=== PATIENT | female | born 1970 | race Caucasian/White ===

== ENCOUNTER 2017-02-10 06:00 | Day surgery (SDC) | payer BC, SELFPAY ==
[2017-02-08 17:43] LABS: BASOPHILS 0.5 %; BASOPHILS ABSOLUTE 0.04 10/3/uL (0.0-0.16); EOSINOPHILS 1.7 %; EOSINOPHILS ABSOLUTE 0.13 10/3/uL (0.0-0.53); HEMATOCRIT 38.5 % (36.0-48.0); HEMOGLOBIN 12.8 g/dL (12.0-16.0); IMMATURE GRANULOCYTES 0.3 %; IMMATURE GRANULOCYTES ABSOLUTE 0.02 10/3/uL (0.0-0.11); LYMPHOCYTES 37.6 %; LYMPHOCYTES ABSOLUTE 2.85 10/3/uL (0.67-4.30); MEAN CORPUS HGB CONC 33.2 g/dL (32.0-36.0); MEAN CORPUSCULAR HEMOGLOB 29.9 pg (26.0-34.0); MEAN PLATELET VOLUME 9.8 fL (9.2-13.0); MONOCYTES 4.9 %; MONOCYTES ABSOLUTE 0.37 10/3/uL (0.21-1.20); NEUTROPHILS ABSOLUTE 4.17 10/3/uL (2.02-8.40); PLATELET COUNT 243 10/3/uL (150-400); RBC DISTRIBUTION WIDTH 13.2 % (12.0-16.0); RED CELL COUNT 4.28 10/6/uL (4.0-5.6); WHITE BLOOD CELLS 7.6 10/3/uL (4.5-10.5)
[2017-02-08 17:44] LABS: MANUAL DIFF NO %
[2017-02-08 17:48] LABS: PARTIAL THROMBO TIME 24.6 SEC (22.5-37.2); PROTIME (NOT ORD) 12.6 SEC (12.0-14.5)
[2017-02-08 18:09] LABS: PFA (COL/EPI) 97 SEC (72-180)
--- NOTE | ~2017-02-10 | OP ---
Record Of Operation [facility] [address] [place]. [address] NAME: FRANCISCA BARTON : 68 STATUS : REG [facility]#: [id number] AGE: 46 ADM/REG DATE : 02/10/17 MR#: [id number] REPORT SERV DATE: 02/10/17 DICTATED BY: KATIE WHITE DATE: 02/10/17 REPORT STATUS : Draft TRANSCRIBED BY: MICHELE DATE: 02/10/17 DATE OF PROCEDURE: 02/10/2017 PREOPERATIVE DIAGNOSIS: Symptomatic breast hypertrophy. POSTOPERATIVE DIAGNOSIS: Symptomatic breast hypertrophy. PROCEDURE: Bilateral breast reduction. INDICATIONS AND FINDINGS OF THE PROCEDURE: This middle-aged female presents with significant symptomatic breast hypertrophy. She is appropriate for bilateral breast reduction. DETAILS OF THE PROCEDURE: The patient was brought to the operating room after being marked in the preoperative holding area. She was prepped and draped in the usual sterile fashion for the above-described procedure. First, our attention was turned to the right, the larger of the two breasts. The infra-central pedicle was de-epithelialized around a 45 mm cookie cutter areolar complex. Excess medial and lateral breast segments were then removed. The infra-central pedicle was then freed from its superior breast flap and the superior breast flap was then elevated from the underlying pectoralis fascia, and depleted of excess breast tissue. She was checked for hemostasis, irrigated, and the soft tissue envelope was then tailored excising further breast tissue away. She was then re-irrigated, checked for hemostasis, and closed with multiple layers of 3-0 Monocryl. Attention was then turned contralaterally, where a similar procedure was carried out. The infra-central pedicle was de-epithelialized, excess medial and lateral breast segments were removed. The superior breast flap was elevated away from the infra-central pedicle, depleted of excess breast tissue. She was irrigated with Hibiclens solution, checked for hemostasis. The soft tissue envelope was tailored, and she was then closed with multiple layers of 3-0 Monocryl. Site for the areolar complex was chosen approximately 5.5 cm from the inframammary crease and 12 cm from midline. These areas were excised, underlying nipple-areolar complexes were introduced and inset with 3-0 Monocryl. All wounds were closed with running intracuticular 3-0 Monocryl. She was cleansed with peroxide. Paper tapes, dry dressing, and circumferential Quentin wrap were placed, and she was remanded to the recovery room in stable condition. All sponge, needle counts were correct. 935 g had been removed from the right, and 850 g from the left. JIGNA/MICHELE Katie White M.D. / [id number] CC: Katie White M.D. Record Of Operation [address] [address] NAME: FRANCISCA BARTON : 68 STATUS : REG [facility] [place]#: [id number] AGE: 46 ADM/REG DATE : 02/10/17 MR#: [id number] REPORT SERV DATE: 02/10/17 DICTATED BY: KATIE WHITE DATE: 02/10/17 REPORT STATUS : Draft TRANSCRIBED BY: MICHELE DATE: 02/10/17 Naveed Armando M.D.
[~2017-02-10 06:00] MED LIST: AMB10 PO; DSS PO; LEXAPRO10 PO; MULTIVIT/MIN PO; SPRINTEC PO; ZYRTEC ALLGY10 MG PO
== END 2017-02-10 14:42 | disposition home or self-care (01) ==
LOC: SDC 06:00
PROVIDERS: Surgery Surgery of the Hand
PROC: 0HBV0ZZ Excision of Bilateral Breast, Open Approach (ICD-10-PCS; principal; 2017-02-10 07:15)
DX: N62 Hypertrophy of breast (principal); F41.9 Anxiety disorder, unspecified; F32.9 Major depressive disorder, single episode, unspecified; G43.909 Migraine, unspecified, not intractable, without status migrainosus; K21.9 Gastro-esophageal reflux disease without esophagitis; Z87.891 Personal history of nicotine dependence; Z98.51 Tubal ligation status; Z79.899 Other long term (current) drug therapy
CPT/HCPCS: 84703; 85025; 85576; 85610; 85730; 88305; A9270-GY; J0690; J1170; J1885; J2250; J2405; J2795; J3010